=== PATIENT | male | born 1960 | race Two or more races ===

== ENCOUNTER 2020-12-21 11:44 | Emergency (ER) | payer MEDICARE ==
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
--- NOTE | 2020-12-21 13:18 | CR ---
Elbow Min 3V Lt CLINICAL HISTORY: Status post I and D FINDINGS: There is soft tissue swelling over the olecranon. There is an ill-defined ossific or calcific density just anterior to the calf patella. This may be intra-articular foreign body No acute fracture or dislocation is noted. Impression: Soft tissue swelling. This may represent olecranon bursitis Foreign body seen in the antecubital region anterior to the capitellum. This may be intra-articular
== END 2020-12-21 14:05 | disposition home or self-care (01) ==
LOC: JP.ED 11:44
DX: M70.32 Other bursitis of elbow, left elbow (principal); S50.352A Superficial foreign body of left elbow, initial encounter; Z86.73 Personal history of transient ischemic attack (TIA), and cerebral infarction without residual deficits; Z72.0 Tobacco use; W45.8XXA Other foreign body or object entering through skin, initial encounter
CPT/HCPCS: 73080-26-LT; 73080-LT; 99283-25

== ENCOUNTER 2021-01-30 21:01 | Emergency (ER) | payer MEDICARE ==
[2021-01-30] MEDS ORDERED: Aspirin 81 MG Tab.Chew PO ONE (21:46)
[2021-01-30] MEDS: Nitroglycerin 0.4 MG Tab.SL SL PRN ×2 (21:54→22:03)
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
[2021-01-30] MEDS ORDERED: Heparin Sodium 5,000 Units/ML Vial IVPUSH ONE (22:11)
[2021-01-30] MEDS ORDERED: Heparin Sodium/D5W 25,000 UNITS/500 ML BAG IV SCH (22:15)
[2021-01-30] MEDS ORDERED: Nitroglycerin/D5W 25 MG/250 ML BOTTLE IV SCH (22:45)
[2021-01-31] MEDS ORDERED: Iopamidol 755 Mg/ML 100 ML Bottle IV STA (00:22)
[2021-01-31] MEDS ORDERED: Sodium Chloride 0.9% 100 ML IV STA (00:22)
--- NOTE | 2021-01-31 01:49 | CRLCT ---
For Patients: As a result of the Century Cures Act, medical imaging exams and procedure reports are released immediately into your electronic medical record. You may view this report before your referring provider. If you have questions, please contact your health care provider. INDICATION: Chest pain. Rule out pulmonary embolism. TECHNIQUE: Volumetric helical scanning of the thorax was performed during infusion of 100 cc of Isovue 370 contrast material IV, timing optimized for pulmonary arterial opacification. Coronal and sagittal reconstructions were obtained. COMPARISON: None. FINDINGS: The images are of acceptable quality and demonstrate uniform vascular enhancement within the pulmonary arteries. No pulmonary arterial filling defect is identified. The heart is mild to moderately enlarged. Calcified coronary arterial plaque is demonstrated. The lungs are low in volume with crowded markings/ground-glass opacity. Mild bronchial wall thickening is noted. No pleural effusion is evident. There is no mediastinal or hilar lymphadenopathy. Images of the upper abdomen demonstrate a cirrhotic liver. Renal parenchymal scarring is demonstrated bilaterally along with a 5 mm stone in the left renal collecting system. IMPRESSION: 1. Negative for pulmonary embolism. 2. Shallow inspiration with crowded markings/ground-glass opacity and mild bronchial wall thickening. 3. Mild to moderate cardiomegaly and coronary artery disease. 4. Cirrhosis. 5. Renal parenchymal thinning bilaterally and 5 mm left renal collecting system stone. Please note that all CT scans at this facility use dose modulation, iterative reconstruction, and/or weight-based dosing when appropriate to reduce radiation dose to as low as reasonably achievable. Dictated by Acosta Roth MD @ 01/31/2021 1:47:52 AM (Electronically Signed)
[2021-01-31] MEDS ORDERED: LORazepam 2 MG/ML SDV IVPUSH ONE (02:42)
== END 2021-01-31 03:30 ==
LOC: JP.ED 21:01
DX: I21.4 Non-ST elevation (NSTEMI) myocardial infarction (principal); I11.0 Hypertensive heart disease with heart failure; I50.9 Heart failure, unspecified; Z86.73 Personal history of transient ischemic attack (TIA), and cerebral infarction without residual deficits; Z72.0 Tobacco use; Z20.822 Contact with and (suspected) exposure to COVID-19
CPT/HCPCS: 36415; 71275; 80053; 81001; 83880; 84484; 85025; 85379; 86140; 93005; 96365; 96366; 96368; 96375; 99285; A9270; J1644; J2060; J3490; Q9967; U0002

== ENCOUNTER 2021-05-04 16:57 | Emergency (ER) | payer MEDICARE ==
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
== END 2021-05-04 19:01 | disposition home or self-care (01) ==
LOC: JP.ED 16:57
DX: T83.091A Other mechanical complication of indwelling urethral catheter, initial encounter (principal); Z86.73 Personal history of transient ischemic attack (TIA), and cerebral infarction without residual deficits
CPT/HCPCS: 99283

== ENCOUNTER 2021-05-05 03:22 | Emergency (ER) | payer MEDICARE ==
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
[2021-05-05] MEDS ORDERED: Nitrofurantoin Monohydrate/Macrocrystalline 100 MG Cap PO ONE (05:26)
== END 2021-05-05 06:47 | disposition home or self-care (01) ==
LOC: JP.ED 03:22
DX: T83.511A Infection and inflammatory reaction due to indwelling urethral catheter, initial encounter (principal); Z79.899 Other long term (current) drug therapy; Z87.891 Personal history of nicotine dependence
CPT/HCPCS: 36415; 51702; 80048; 81001; 85025; 87086; 87088; 87186; 99283; A9270

== ENCOUNTER 2021-05-11 17:11 | Emergency (ER) | payer MEDICARE ==
[2021-05-11] MEDS ORDERED: Sodium Chloride 0.9% 10 ML Syringe FLUSH PRN (18:16)
[2021-05-11] MEDS ORDERED: Morphine 2 MG/ML SYRINGE IVPUSH PRN (18:16)
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
[2021-05-11] MEDS ORDERED: Carvedilol 3.125 MG Tab PO ONE (21:59)
[2021-05-11] MEDS ORDERED: Furosemide 20 MG Tab PO ONE (21:59)
== END 2021-05-11 22:48 | disposition home or self-care (01) ==
LOC: JP.ED 17:11
DX: R07.89 Other chest pain (principal); T83.9XXA Unspecified complication of genitourinary prosthetic device, implant and graft, initial encounter; I11.0 Hypertensive heart disease with heart failure; I50.9 Heart failure, unspecified; R33.9 Retention of urine, unspecified; Z79.899 Other long term (current) drug therapy; Z72.0 Tobacco use
CPT/HCPCS: 36415; 80048; 81001; 83880; 84484; 85025; 93005; 93010; 96374; 99284; 99285; A9270; J2270

== ENCOUNTER 2021-05-17 03:36 | Emergency (ER) | payer MEDICARE | END 2021-05-17 08:07 | disposition home or self-care (01) | LOC: JP.ED 03:36 | DX: I25.10 Atherosclerotic heart disease of native coronary artery without angina pectoris (principal); I11.0 Hypertensive heart disease with heart failure; I50.9 Heart failure, unspecified; Z72.0 Tobacco use; Z79.899 Other long term (current) drug therapy | CPT/HCPCS: 36415; 71045; 71045-26; 80053; 84484; 85025; 85379; 85610; 85730; 93005; 93010; 99284; 99285-25 ==

== ENCOUNTER 2021-05-25 01:12 | Emergency (ER) | payer MEDICARE ==
[2021-05-25] MEDS: Aluminum Hydroxide/Magnesium Hydroxide/Simethicone Susp 30 ML Cup PO STA (01:57)
[2021-05-25] MEDS: Pantoprazole 40 MG Tab.CR PO STA (06:55)
== END 2021-05-25 08:05 | disposition home or self-care (01) ==
LOC: JP.ED 01:12
DX: K21.00 Gastro-esophageal reflux disease with esophagitis, without bleeding (principal); Z79.899 Other long term (current) drug therapy; Z86.73 Personal history of transient ischemic attack (TIA), and cerebral infarction without residual deficits
CPT/HCPCS: 36415; 80053; 84484; 85025; 85379; 86140; 93005; 93010; 99284; 99285-25; A9270-GY

== ENCOUNTER 2021-07-10 03:49 | Emergency (ER) | payer MEDICARE | END 2021-07-10 06:40 | disposition home or self-care (01) | LOC: JP.ED 03:49 | DX: Z53.21 Procedure and treatment not carried out due to patient leaving prior to being seen by health care provider (principal) ==

== ENCOUNTER 2021-08-09 01:17 | Emergency (ER) | payer MEDICARE | END 2021-08-09 08:25 | disposition home or self-care (01) | LOC: JP.ED 01:17 | DX: Z46.6 Encounter for fitting and adjustment of urinary device (principal); Z79.899 Other long term (current) drug therapy; Z86.73 Personal history of transient ischemic attack (TIA), and cerebral infarction without residual deficits | CPT/HCPCS: 51702; 99281; 99283-25 ==

== ENCOUNTER 2021-08-19 16:25 | Emergency (ER) | payer MEDICARE ==
[2021-08-19] MEDS ORDERED: cefTRIAXone 2 GM in Sodium Chloride 0.9% 50 ML IV ONE (17:37)
[2021-08-19] MEDS ORDERED: Sodium Chloride 0.9% 1,000 ML IV SCH (17:45)
== END 2021-08-19 20:02 | disposition home or self-care (01) ==
LOC: JP.ED 16:25
DX: T83.098A Other mechanical complication of other urinary catheter, initial encounter (principal); T83.511A Infection and inflammatory reaction due to indwelling urethral catheter, initial encounter; N39.0 Urinary tract infection, site not specified; E86.0 Dehydration; Z86.73 Personal history of transient ischemic attack (TIA), and cerebral infarction without residual deficits; Z79.899 Other long term (current) drug therapy; Z72.0 Tobacco use
CPT/HCPCS: 36415; 51702; 51798; 80053; 81001; 85025; 87086; 87088; 87186; 96365; 99282; 99283-25; J0696; J7030

== ENCOUNTER 2021-09-18 07:50 | Emergency (ER) | payer MEDICARE ==
[2021-09-18] MEDS ORDERED: Lisinopril 10 MG Tab PO ONE (09:05)
[2021-09-18] MEDS ORDERED: Carvedilol 3.125 MG Tab PO ONE (09:06)
== END 2021-09-18 10:20 | disposition home or self-care (01) ==
LOC: JP.ED 07:50
DX: T83.098A Other mechanical complication of other urinary catheter, initial encounter (principal); Z79.899 Other long term (current) drug therapy; Z86.73 Personal history of transient ischemic attack (TIA), and cerebral infarction without residual deficits
CPT/HCPCS: 51702; 99281; 99283-25; A9270-GY

== ENCOUNTER 2021-12-06 21:37 | Emergency (ER) | payer MEDICARE ==
[2021-12-06] MEDS ORDERED: Sodium Chloride 0.9% 10 ML Syringe FLUSH PRN ×2 (21:41→21:46)
[2021-12-06] MEDS ORDERED: Nitroglycerin 0.4 MG Tab.SL SL PRN (21:46)
[2021-12-06] MEDS ORDERED: Ondansetron 4 MG/2 ML SDV IVPUSH ONE (21:46)
[2021-12-06 22:12] LABS: ESTIMATED GFR 63 mL/min (>60); TROPONIN I HIGH SENSITIVITY 20.6 pg/mL (<=60.3)
[2021-12-06] MEDS ORDERED: Sodium Chloride 0.9% 75 ML IV SCH (23:00)
[2021-12-06] MEDS ORDERED: Iopamidol 755 Mg/ML 100 ML Bottle IV SCH (23:00)
== END 2021-12-07 00:55 | disposition home or self-care (01) ==
LOC: JP.ED 21:37
DX: J20.9 Acute bronchitis, unspecified (principal); R06.02 Shortness of breath; Z79.899 Other long term (current) drug therapy; Z79.82 Long term (current) use of aspirin; Z20.822 Contact with and (suspected) exposure to COVID-19
CPT/HCPCS: 36415; 71045; 71275; 80053; 83735; 84484; 85025; 85379; 85610; 85730; 93005; 96374; 99285; A9270; J2405; J3490; Q9967; U0002

== ENCOUNTER 2021-12-08 16:56 | Emergency (ER) | payer MEDICARE | END 2021-12-08 19:17 | disposition home or self-care (01) | LOC: JP.ED 16:56 → EEVIPCON 16:56 → JP.ED 19:17 | DX: T83.021A Displacement of indwelling urethral catheter, initial encounter (principal); E11.9 Type 2 diabetes mellitus without complications; I25.2 Old myocardial infarction; F17.210 Nicotine dependence, cigarettes, uncomplicated; Z95.0 Presence of cardiac pacemaker; Z79.899 Other long term (current) drug therapy; Z79.82 Long term (current) use of aspirin | CPT/HCPCS: 99283 ==

== ENCOUNTER 2021-12-21 23:37 | Emergency (ER) | payer MEDICARE ==
[2021-12-21] MEDS ORDERED: Morphine 4 MG/ML Syringe IVPUSH PRN (23:58)
[2021-12-21] MEDS ORDERED: Sodium Chloride 0.9% 10 ML Syringe FLUSH PRN (23:58)
[2021-12-21] MEDS ORDERED: Nitroglycerin 0.4 MG Tab.SL SL PRN (23:58)
[2021-12-22] MEDS ORDERED: Alum Hydrox/Mag Hydrox/Simeth 15 ML, Lidocaine 2% 15 ML PO ONE ×2 (00:28)
[2021-12-22] MEDS ORDERED: Ondansetron 4 MG/2 ML SDV IVPUSH ONE (00:34)
[2021-12-22 00:39] LABS: ESTIMATED GFR 57 mL/min (>60); TROPONIN I HIGH SENSITIVITY 14.3 pg/mL (<=60.3)
== END 2021-12-22 04:15 | disposition home or self-care (01) ==
LOC: JP.ED 23:37
DX: R07.89 Other chest pain (principal); I25.10 Atherosclerotic heart disease of native coronary artery without angina pectoris; I25.2 Old myocardial infarction; E11.9 Type 2 diabetes mellitus without complications; Z79.899 Other long term (current) drug therapy; Z79.82 Long term (current) use of aspirin; Z86.73 Personal history of transient ischemic attack (TIA), and cerebral infarction without residual deficits
CPT/HCPCS: 36415; 71045; 80053; 80307; 83605; 83690; 84484; 85025; 93005; 96374; 96375; 99285; A9270; J2270; J2405; J3490

== ENCOUNTER 2022-01-14 21:35 | Emergency (ER) | payer MEDICARE ==
[2022-01-14] MEDS ORDERED: Morphine 2 MG/ML SYRINGE IVPUSH ONE (22:01)
[2022-01-14] MEDS ORDERED: Sodium Chloride 0.9% 10 ML Syringe FLUSH PRN (22:27)
[2022-01-14 22:58] LABS: ESTIMATED GFR 63 mL/min (>60); TROPONIN I HIGH SENSITIVITY 17.1 pg/mL (<=60.3)
[2022-01-14] MEDS ORDERED: cefTRIAXone 1 GM in Sodium Chloride 0.9% 50 ML IV ONE (23:28)
[2022-01-14] MEDS ORDERED: Magnesium Sulfate/Water 2 GM in Premix Bag 1 BAG IV ONE (23:29)
[2022-01-14] MEDS ORDERED: Calcium Carbonate 500 MG Tab.Chew PO ONE (23:29)
== END 2022-01-15 02:05 | disposition home or self-care (01) ==
LOC: JP.ED 21:35
DX: T83.091A Other mechanical complication of indwelling urethral catheter, initial encounter (principal); E83.51 Hypocalcemia; E83.42 Hypomagnesemia; N39.0 Urinary tract infection, site not specified; R20.2 Paresthesia of skin; F19.10 Other psychoactive substance abuse, uncomplicated; I25.10 Atherosclerotic heart disease of native coronary artery without angina pectoris; I50.9 Heart failure, unspecified; I25.2 Old myocardial infarction; Z79.899 Other long term (current) drug therapy; Z95.810 Presence of automatic (implantable) cardiac defibrillator
CPT/HCPCS: 36415; 80053; 80305; 80307; 81001; 82607; 82746; 83690; 83735; 83880; 84443; 84484; 85025; 87086; 87088; 87186; 93005; 96365; 96366; 96367; 96375; 99284; A9270; J0696; J2270; J3475; J3490

== ENCOUNTER 2022-03-18 13:39 | Emergency (ER) | payer MEDICARE ==
[2022-03-18 16:24] LABS: ESTIMATED GFR 49 mL/min (>60)
== END 2022-03-18 22:26 | disposition home or self-care (01) ==
LOC: JP.ED 13:39
DX: T83.091A Other mechanical complication of indwelling urethral catheter, initial encounter (principal); N30.01 Acute cystitis with hematuria; I25.10 Atherosclerotic heart disease of native coronary artery without angina pectoris; E11.9 Type 2 diabetes mellitus without complications; Z79.899 Other long term (current) drug therapy
CPT/HCPCS: 36415; 51702; 74176; 80053; 81001; 85025; 86140; 87086; 87088; 87186; 99284-25

== ENCOUNTER 2022-03-22 23:57 | Emergency (ER) | payer MEDICARE ==
[2022-03-23] MEDS ORDERED: Ondansetron 4 MG/2 ML SDV IVPUSH ONE (00:22)
[2022-03-23] MEDS ORDERED: fentaNYL 100 MCG/2 ML SDV IVPUSH ONE (00:22)
[2022-03-23] MEDS ORDERED: Lactated Ringers 1,000 ML IV SCH (00:30)
[2022-03-23] MEDS ORDERED: Levofloxacin/Dextrose 5%-Water 750 MG in Premix Bag 1 BAG IV SCH (00:30)
[2022-03-23] MEDS ORDERED: Iopamidol 612 MG/ML 100 ML Bottle IV PRN (00:52)
[2022-03-23] MEDS ORDERED: Sodium Chloride 0.9% 50 ML IV ONE (00:52)
[2022-03-23 00:57] LABS: ESTIMATED GFR 45 mL/min (>60)
[2022-03-23] MEDS: Sodium Chloride 0.9% 10 ML Syringe FLUSH PRN ×2 (00:57→01:11)
== END 2022-03-23 02:20 | disposition home or self-care (01) ==
LOC: JP.ED 23:57
DX: N30.90 Cystitis, unspecified without hematuria (principal); I25.119 Atherosclerotic heart disease of native coronary artery with unspecified angina pectoris; I25.2 Old myocardial infarction; E11.9 Type 2 diabetes mellitus without complications; F17.210 Nicotine dependence, cigarettes, uncomplicated; Z95.0 Presence of cardiac pacemaker; Z79.899 Other long term (current) drug therapy; Z79.02 Long term (current) use of antithrombotics/antiplatelets
CPT/HCPCS: 36415; 74177; 80053; 81001; 83605; 84145; 84484; 85025; 86140; 87040; 87086; 87088; 87186; 96365; 96375; 99284; J1956; J2405; J3010; J3490; J7120; Q9967

== ENCOUNTER 2022-03-31 18:34 | Emergency (ER) | payer MEDICARE ==
[2022-03-31 19:17] LABS: ESTIMATED GFR 42 mL/min (>60)
[2022-03-31] MEDS ORDERED: Lidocaine 5% 700 MG Patch TRDERM ONE (19:59)
== END 2022-03-31 20:27 | disposition home or self-care (01) ==
LOC: JP.ED 18:34
DX: S20.222A Contusion of left back wall of thorax, initial encounter (principal); K59.01 Slow transit constipation; I25.119 Atherosclerotic heart disease of native coronary artery with unspecified angina pectoris; I25.2 Old myocardial infarction; E11.9 Type 2 diabetes mellitus without complications; F17.210 Nicotine dependence, cigarettes, uncomplicated; Z79.02 Long term (current) use of antithrombotics/antiplatelets; Z79.899 Other long term (current) drug therapy; Z86.73 Personal history of transient ischemic attack (TIA), and cerebral infarction without residual deficits; Z95.810 Presence of automatic (implantable) cardiac defibrillator; W18.09XA Striking against other object with subsequent fall, initial encounter
CPT/HCPCS: 36415; 71101; 74176; 80053; 81001; 85025; 86140; 99284; A9270

== ENCOUNTER 2022-05-05 18:16 | Emergency (ER) | payer MEDICARE, MEDICAID ==
[2022-05-05 19:26] LABS: ESTIMATED GFR 49 mL/min (>60)
[2022-05-05 19:41] LABS: CORONAVIRUS COVID-19 NAA NEGATIVE (NEGATIVE)
[2022-05-05] MEDS ORDERED: Ciprofloxacin 500 MG Tab PO ONE (20:12)
== END 2022-05-05 21:07 | disposition home or self-care (01) ==
LOC: JP.ED 18:16
DX: N39.0 Urinary tract infection, site not specified (principal); I25.10 Atherosclerotic heart disease of native coronary artery without angina pectoris; I50.9 Heart failure, unspecified; I25.2 Old myocardial infarction; E11.9 Type 2 diabetes mellitus without complications; Z79.02 Long term (current) use of antithrombotics/antiplatelets; Z79.899 Other long term (current) drug therapy; Z20.822 Contact with and (suspected) exposure to COVID-19
CPT/HCPCS: 0241U; 36415; 74176; 80053; 81001; 85025; 86140; 87086; 87088; 87186; 99284; A9270

== ENCOUNTER 2022-05-06 23:36 | Emergency (ER) | payer MEDICARE, MEDICAID ==
[2022-05-06] MEDS ORDERED: Ondansetron 4 MG/2 ML SDV IVPUSH ONE (23:50)
[2022-05-06] MEDS ORDERED: Sodium Chloride 0.9% 10 ML Syringe FLUSH PRN (23:50)
[2022-05-07 00:09] LABS: ESTIMATED GFR 53 mL/min (>60)
[2022-05-07] MEDS ORDERED: Haloperidol Lactate 5 MG/ML SDV IVPUSH ONE (00:42)
[2022-05-07] MEDS ORDERED: cefTRIAXone 2 GM in Sodium Chloride 0.9% 50 ML IV ONE (01:16)
== END 2022-05-07 02:33 | disposition home or self-care (01) ==
LOC: JP.ED 23:36
DX: R55 Syncope and collapse (principal); N30.01 Acute cystitis with hematuria; I10 Essential (primary) hypertension; F15.90 Other stimulant use, unspecified, uncomplicated; I25.119 Atherosclerotic heart disease of native coronary artery with unspecified angina pectoris; I25.2 Old myocardial infarction; E11.9 Type 2 diabetes mellitus without complications; Z86.73 Personal history of transient ischemic attack (TIA), and cerebral infarction without residual deficits; Z95.0 Presence of cardiac pacemaker; Z79.899 Other long term (current) drug therapy
CPT/HCPCS: 36415; 80053; 83605; 84484; 85025; 86140; 93005; 96365; 96375; 99284; J0696; J1630; J2405; J3490

== ENCOUNTER 2022-05-20 02:46 | Emergency (ER) | payer MEDICARE, MEDICAID | END 2022-05-20 03:31 | disposition home or self-care (01) | LOC: JP.ED 02:46 | DX: T83.011A Breakdown (mechanical) of indwelling urethral catheter, initial encounter (principal); I25.119 Atherosclerotic heart disease of native coronary artery with unspecified angina pectoris; I25.2 Old myocardial infarction; E11.9 Type 2 diabetes mellitus without complications; F17.210 Nicotine dependence, cigarettes, uncomplicated; Z95.0 Presence of cardiac pacemaker; Z79.899 Other long term (current) drug therapy; Z79.02 Long term (current) use of antithrombotics/antiplatelets; Z79.82 Long term (current) use of aspirin | CPT/HCPCS: 51702; 99283 ==

== ENCOUNTER 2022-06-30 13:06 | Emergency (ER) | payer MEDICARE, MEDICAID ==
[2022-06-30] MEDS ORDERED: Sodium Chloride 0.9% 10 ML Syringe FLUSH PRN (13:12)
[2022-06-30 14:13] LABS: ESTIMATED GFR 57 mL/min (>60); TROPONIN I HIGH SENSITIVITY 14.2 pg/mL (<=60.3)
[2022-06-30 14:40] LABS: CORONAVIRUS COVID-19 NAA NEGATIVE (NEGATIVE)
== END 2022-06-30 16:08 | disposition home or self-care (01) ==
LOC: JP.ED 13:06
DX: R07.89 Other chest pain (principal); R06.00 Dyspnea, unspecified; R09.02 Hypoxemia; N39.0 Urinary tract infection, site not specified; I13.0 Hypertensive heart and chronic kidney disease with heart failure and stage 1 through stage 4 chronic kidney disease, or unspecified chronic kidney disease; N18.32 Chronic kidney disease, stage 3b; I50.9 Heart failure, unspecified; E11.22 Type 2 diabetes mellitus with diabetic chronic kidney disease; I25.10 Atherosclerotic heart disease of native coronary artery without angina pectoris; I25.2 Old myocardial infarction; Z95.810 Presence of automatic (implantable) cardiac defibrillator; Z96.0 Presence of urogenital implants; Z20.822 Contact with and (suspected) exposure to COVID-19; Z86.73 Personal history of transient ischemic attack (TIA), and cerebral infarction without residual deficits; Z79.899 Other long term (current) drug therapy; Z99.81 Dependence on supplemental oxygen
CPT/HCPCS: 0241U; 36415; 71045; 80053; 81001; 83880; 84145; 84484; 85025; 85610; 85730; 87086; 87088; 87186; 93005; 99285

== ENCOUNTER 2022-07-01 02:34 | Emergency (ER) | payer MEDICARE, MEDICAID ==
[2022-07-01] MEDS ORDERED: Sodium Chloride 0.9% 10 ML Syringe FLUSH PRN (02:48)
== END 2022-07-01 04:29 | disposition home or self-care (01) ==
LOC: JP.ED 02:34
DX: R07.89 Other chest pain (principal); I25.2 Old myocardial infarction; E11.9 Type 2 diabetes mellitus without complications; Z95.0 Presence of cardiac pacemaker; Z79.899 Other long term (current) drug therapy; Z86.73 Personal history of transient ischemic attack (TIA), and cerebral infarction without residual deficits; Z79.82 Long term (current) use of aspirin
CPT/HCPCS: 36415; 84484; 93005; 99285

== ENCOUNTER 2022-08-24 18:13 | Emergency (ER) | payer MEDICARE, MEDICAID ==
[2022-08-24] MEDS ORDERED: Ondansetron 4 MG/2 ML SDV IVPUSH ONE (19:22)
[2022-08-24] MEDS ORDERED: Lactated Ringers 1,000 ML IV SCH (19:30)
[2022-08-24 19:39] LABS: CORONAVIRUS COVID-19 NAA NEGATIVE (NEGATIVE)
[2022-08-24 20:01] LABS: ESTIMATED GFR 39 mL/min (>60)
[2022-08-24] MEDS ORDERED: cefTRIAXone 1 GM in Sodium Chloride 0.9% 50 ML IV ONE (20:59)
== END 2022-08-24 22:30 | disposition home or self-care (01) ==
LOC: JP.ED 18:13
DX: N39.0 Urinary tract infection, site not specified (principal); I25.10 Atherosclerotic heart disease of native coronary artery without angina pectoris; I50.9 Heart failure, unspecified; I25.2 Old myocardial infarction; E11.9 Type 2 diabetes mellitus without complications; F17.210 Nicotine dependence, cigarettes, uncomplicated; Z20.822 Contact with and (suspected) exposure to COVID-19; Z79.82 Long term (current) use of aspirin; Z79.899 Other long term (current) drug therapy
CPT/HCPCS: 0241U; 36415; 51702; 71046; 80053; 81001; 83605; 83880; 84145; 84484; 85025; 86140; 87040; 87086; 87088; 87186; 96361; 96365; 96375; 99285; J0696; J2405; J3490; J7120

== ENCOUNTER 2022-10-18 06:59 | Emergency (ER) | payer MEDICARE, MEDICAID ==
[2022-10-18] MEDS ORDERED: HYDROmorphone 0.5 MG/0.5 ML Syringe IVPUSH ONE ×2 (07:05→10:37)
[2022-10-18] MEDS ORDERED: Ondansetron 4 MG/2 ML SDV IVPUSH ONE (07:05)
[2022-10-18] MEDS ORDERED: Naloxone 0.4 MG/ML SDV IVPUSH PRN (07:06)
[2022-10-18] MEDS ORDERED: Sodium Chloride 0.9% 10 ML Syringe FLUSH PRN (07:06)
[2022-10-18] MEDS ORDERED: Pantoprazole 40 MG Vial IVPUSH ONE (07:06)
[2022-10-18 07:22] LABS: BASOPHILS ABSOLUTE AUTO 0.05 K/uL (0.00-0.10); BASOPHILS PERCENT AUTO 0.6 % (0.1-1.3); EOSINOPHILS ABSOLUTE AUTO 0.19 K/uL (0.00-0.40); EOSINOPHILS PERCENT AUTO 2.4 % (0.0-5.4); HEMATOCRIT 43.6 % (38.4-49.7); HEMOGLOBIN 15.2 g/dL (12.9-16.9); IMMATURE GRAN ABSOLUTE AUTO 0.07 K/uL (0.00-0.23); IMMATURE GRAN PERCENT AUTO 0.9 % (0.0-0.7); LYMPHOCYTES ABSOLUTE AUTO 1.86 K/uL (0.8-3.3); LYMPHOCYTES PERCENT AUTO 23.2 % (11.4-47.7); MEAN CORPUSCULAR HEMOGLOBIN 29.7 pg (31.6-35.5); MEAN CORPUSCULAR HGB CONC 34.9 g/dL (31.6-35.5); MEAN CORPUSCULAR VOLUME 85.2 fL (81.4-99.0); MONOCYTES ABSOLUTE AUTO 0.56 K/uL (0.20-0.90); NEUTROPHILS ABSOLUTE AUTO 5.28 K/uL (1.0-7.6); NEUTROPHILS PERCENT AUTO 65.9 % (40.0-78.1); PLATELET COUNT,PLT 170 K/uL (130-375); RED BLOOD CELL COUNT 5.12 M/uL (4.14-5.76)
[2022-10-18 07:44] LABS: A/G RATIO 0.8 (1.2-2.2); ALANINE AMINOTRANSFERASE,ALT 45 U/L (12-78); ALBUMIN 3.1 g/dL (3.4-5.0); ALKALINE PHOSPHATASE 140 U/L (46-116); ANION GAP 14.8 mmol/L (5.0-14.0); ASPARTATE AMNIOTRANSFERASE,AST 30 U/L (15-37); BILIRUBIN TOTAL 0.7 mg/dL (0.2-1.0); BLOOD UREA NITROGEN,BUN 20 mg/dL (7-18); C-REACTIVE PROTEIN 3.34 mg/dL (0.0-0.3); CALCIUM 8.8 mg/dL (8.5-10.1); CARBON DIOXIDE,CO2 26 mmol/L (21-32); CHLORIDE,CL 98 mmol/L (100-108); CREATININE 1.4 mg/dL (0.8-1.3); EST CRCL DRUG DOSING (CG) 54.71 mL/min; ESTIMATED GFR 57 mL/min (>60); GLUCOSE RANDOM 240 mg/dL (74-106); LIPASE 671 U/L (73-393); POTASSIUM,K 3.8 mmol/L (3.6-5.2); PROTEIN TOTAL,TP 7.1 g/dL (6.4-8.2); SODIUM,NA 135 mmol/L (140-148)
[2022-10-18] MEDS ORDERED: Iopamidol 612 MG/ML 100 ML Bottle IV ONE (07:56)
[2022-10-18] MEDS ORDERED: Sodium Chloride 0.9% 50 ML IV SCH (08:00)
[2022-10-18 08:51] LABS: APPEARANCE,URINE CLEAR (CLEAR); BILIRUBIN,URINE NEGATIVE (NEGATIVE); COLOR,URINE YELLOW (YELLOW); GLUCOSE,URINE NEGATIVE (NEGATIVE); KETONES,URINE NEGATIVE (NEGATIVE); LEUKOCYTE ESTERASE,URINE SMALL (NEGATIVE); NITRITE,URINE NEGATIVE (NEGATIVE); OCCULT BLOOD,URINE SMALL (NEGATIVE); PROTEIN,URINE NEGATIVE (NEGATIVE); UROBILINOGEN,URINE 0.2 EU/dL (0.2-1.0)
[2022-10-18 09:00] LABS: AMORPHOUS SEDIMENT,URINE MANY; BACTERIA,URINE RARE; EPITHELIAL CELLS,URINE NOT SEEN; MUCUS,URINE NOT SEEN
[2022-10-18 09:01] LABS: AMPHETAMINES SCREEN, URINE PRESUMPTIVE POSITIVE (NEGATIVE); BARBITURATE SCREEN,URINE NEGATIVE (NEGATIVE); BENZODIAZEPINES SCREEN,URINE NEGATIVE (NEGATIVE); METHADONE SCREEN, URINE NEGATIVE (NEGATIVE); METHAMPHETAMINES SCREEN, URINE PRESUMPTIVE POSITIVE (NEGATIVE); OXYCODONE SCREEN,URINE NEGATIVE (NEGATIVE); PROPOXYPHENE SCREEN,URINE NEGATIVE (NEGATIVE); THC SCREEN,URINE 50 NG/ML NEGATIVE (NEGATIVE)
[2022-10-18] MEDS ORDERED: Sodium Chloride 0.9% 1,000 ML IV SCH (09:15)
[2022-10-18 11:00] LABS: PROTHROMBIN TIME 10.6 sec (9.2-10.6); PTT,PARTIAL THROMBOPLSTIN TIME 27.2 sec (21.8-27.3)
== END 2022-10-18 12:09 ==
LOC: JP.ED 06:59
DX: K85.10 Biliary acute pancreatitis without necrosis or infection (principal); F19.10 Other psychoactive substance abuse, uncomplicated; F15.90 Other stimulant use, unspecified, uncomplicated; I12.9 Hypertensive chronic kidney disease with stage 1 through stage 4 chronic kidney disease, or unspecified chronic kidney disease; E11.22 Type 2 diabetes mellitus with diabetic chronic kidney disease; N18.32 Chronic kidney disease, stage 3b; I50.9 Heart failure, unspecified; I25.119 Atherosclerotic heart disease of native coronary artery with unspecified angina pectoris; I25.2 Old myocardial infarction; Z79.899 Other long term (current) drug therapy; Z79.82 Long term (current) use of aspirin; Z79.02 Long term (current) use of antithrombotics/antiplatelets
CPT/HCPCS: 36415; 51702; 74177; 76705; 80053; 80305; 81001; 82140; 82800; 83605; 83690; 85025; 85610; 85730; 86140; 87086; 87088; 87186; 93005; 96361; 96374; 96375; 96376; 99285; C9113; J1170; J2405; J3490; J7030; Q9967

== ENCOUNTER 2022-12-12 10:43 | Emergency (ER) | payer MEDICARE, MEDICAID ==
[2022-12-12] MEDS ORDERED: Sodium Chloride 0.9% 10 ML Syringe FLUSH PRN (10:45)
[2022-12-12] MEDS ORDERED: Sodium Chloride 0.9% 500 ML IV ONE (10:53)
[2022-12-12 10:54] LABS: BASOPHILS ABSOLUTE AUTO 0.06 K/uL (0.00-0.10); BASOPHILS PERCENT AUTO 0.9 % (0.1-1.3); EOSINOPHILS PERCENT AUTO 4.4 % (0.0-5.4); HEMATOCRIT 42.2 % (38.4-49.7); HEMOGLOBIN 14.3 g/dL (12.9-16.9); IMMATURE GRAN ABSOLUTE AUTO 0.04 K/uL (0.00-0.23); IMMATURE GRAN PERCENT AUTO 0.6 % (0.0-0.7); LYMPHOCYTES PERCENT AUTO 27.6 % (11.4-47.7); MEAN CORPUSCULAR HEMOGLOBIN 28.9 pg (31.6-35.5); MEAN CORPUSCULAR HGB CONC 33.9 g/dL (31.6-35.5); MEAN CORPUSCULAR VOLUME 85.3 fL (81.4-99.0); MONOCYTES ABSOLUTE AUTO 0.55 K/uL (0.20-0.90); NEUTROPHILS ABSOLUTE AUTO 4.04 K/uL (1.0-7.6); NEUTROPHILS PERCENT AUTO 58.5 % (40.0-78.1); PLATELET COUNT,PLT 176 K/uL (130-375); RED BLOOD CELL COUNT 4.95 M/uL (4.14-5.76); WHITE BLOOD CELL COUNT,WBC 6.9 K/uL (3.2-11.0)
[2022-12-12 11:24] LABS: BLOOD UREA NITROGEN,BUN 34 mg/dL (7-18); CALCIUM 8.7 mg/dL (8.5-10.1); CARBON DIOXIDE,CO2 23 mmol/L (21-32); CHLORIDE,CL 101 mmol/L (100-108); CREATININE 1.7 mg/dL (0.8-1.3); ESTIMATED GFR 45 mL/min (>60); GLUCOSE RANDOM 228 mg/dL (74-106); SODIUM,NA 135 mmol/L (140-148)
[2022-12-12 11:25] LABS: TROPONIN I HIGH SENSITIVITY 9.2 pg/mL (<=60.3)
[2022-12-12 11:45] LABS: TSH ULTRASENSITIVE 0.709 uIU/mL (0.358-3.740)
[2022-12-12 11:46] LABS: FOLIC ACID > 20.0 ng/ml (8.6-58.9)
[2022-12-12 12:07] LABS: AMPHETAMINES SCREEN, URINE PRESUMPTIVE POSITIVE (NEGATIVE); BARBITURATE SCREEN,URINE NEGATIVE (NEGATIVE); BENZODIAZEPINES SCREEN,URINE NEGATIVE (NEGATIVE); METHAMPHETAMINES SCREEN, URINE PRESUMPTIVE POSITIVE (NEGATIVE)
[2022-12-12 12:08] LABS: METHADONE SCREEN, URINE NEGATIVE (NEGATIVE); OXYCODONE SCREEN,URINE NEGATIVE (NEGATIVE); PROPOXYPHENE SCREEN,URINE NEGATIVE (NEGATIVE); THC SCREEN,URINE 50 NG/ML PRESUMPTIVE POSITIVE (NEGATIVE)
== END 2022-12-12 16:00 | disposition home or self-care (01) ==
LOC: JP.ED 10:43
DX: E11.22 Type 2 diabetes mellitus with diabetic chronic kidney disease (principal); N18.32 Chronic kidney disease, stage 3b; F15.90 Other stimulant use, unspecified, uncomplicated; I50.22 Chronic systolic (congestive) heart failure; I25.10 Atherosclerotic heart disease of native coronary artery without angina pectoris; I25.2 Old myocardial infarction; Z87.448 Personal history of other diseases of urinary system; Z86.73 Personal history of transient ischemic attack (TIA), and cerebral infarction without residual deficits; Z95.810 Presence of automatic (implantable) cardiac defibrillator; Z79.82 Long term (current) use of aspirin; Z79.899 Other long term (current) drug therapy
CPT/HCPCS: 36415; 71045; 80048; 80305; 80307; 82607; 82746; 82800; 83735; 83880; 84145; 84443; 84484; 85025; 93010; 99285; J7040

== ENCOUNTER 2023-01-20 06:20 | Emergency (ER) | payer MEDICARE, MEDICAID ==
[2023-01-20] MEDS ORDERED: Lidocaine 2% Jelly 10 ML Urojet MUCMEM ONE (07:38)
== END 2023-01-20 09:00 | disposition home or self-care (01) ==
LOC: JP.ED 06:20
DX: T83.011A Breakdown (mechanical) of indwelling urethral catheter, initial encounter (principal); N18.32 Chronic kidney disease, stage 3b; I25.10 Atherosclerotic heart disease of native coronary artery without angina pectoris; I25.2 Old myocardial infarction; I50.9 Heart failure, unspecified; E11.22 Type 2 diabetes mellitus with diabetic chronic kidney disease; F17.210 Nicotine dependence, cigarettes, uncomplicated; Z86.73 Personal history of transient ischemic attack (TIA), and cerebral infarction without residual deficits; Z95.0 Presence of cardiac pacemaker; Z79.02 Long term (current) use of antithrombotics/antiplatelets; Z79.82 Long term (current) use of aspirin; Z79.899 Other long term (current) drug therapy
CPT/HCPCS: 51702; 99284

== ENCOUNTER 2023-02-06 12:34 | Emergency (ER) | payer MEDICARE, MEDICAID ==
[2023-02-06 13:12] LABS: BASOPHILS ABSOLUTE AUTO 0.06 K/uL (0.00-0.10); BASOPHILS PERCENT AUTO 0.9 % (0.1-1.3); EOSINOPHILS ABSOLUTE AUTO 0.15 K/uL (0.00-0.40); EOSINOPHILS PERCENT AUTO 2.1 % (0.0-5.4); HEMATOCRIT 44.6 % (38.4-49.7); HEMOGLOBIN 15.2 g/dL (12.9-16.9); IMMATURE GRAN ABSOLUTE AUTO 0.08 K/uL (0.00-0.23); IMMATURE GRAN PERCENT AUTO 1.1 % (0.0-0.7); LYMPHOCYTES ABSOLUTE AUTO 1.55 K/uL (0.8-3.3); LYMPHOCYTES PERCENT AUTO 22.2 % (11.4-47.7); MEAN CORPUSCULAR HEMOGLOBIN 28.5 pg (31.6-35.5); MEAN CORPUSCULAR HGB CONC 34.1 g/dL (31.6-35.5); MEAN CORPUSCULAR VOLUME 83.7 fL (81.4-99.0); MONOCYTES ABSOLUTE AUTO 0.54 K/uL (0.20-0.90); MONOCYTES PERCENT AUTO 7.7 % (3.3-12.6); NEUTROPHILS ABSOLUTE AUTO 4.61 K/uL (1.0-7.6); PLATELET COUNT,PLT 158 K/uL (130-375); RED BLOOD CELL COUNT 5.33 M/uL (4.14-5.76)
[2023-02-06 13:35] LABS: CALCIUM 7.9 mg/dL (8.5-10.1); CREATININE 1.4 mg/dL (0.8-1.3); EST CRCL DRUG DOSING (CG) 54.71 mL/min; POTASSIUM,K 3.8 mmol/L (3.6-5.2); TROPONIN I HIGH SENSITIVITY 10.6 pg/mL (<=60.3)
[2023-02-06 13:39] LABS: ANION GAP 14.8 mmol/L (5.0-14.0)
== END 2023-02-06 15:34 | disposition home or self-care (01) ==
LOC: JP.ED 12:34
DX: R07.89 Other chest pain (principal); I25.10 Atherosclerotic heart disease of native coronary artery without angina pectoris; I25.2 Old myocardial infarction; F17.210 Nicotine dependence, cigarettes, uncomplicated; E11.9 Type 2 diabetes mellitus without complications; Z79.01 Long term (current) use of anticoagulants; Z79.899 Other long term (current) drug therapy
CPT/HCPCS: 36415; 71046; 71046-26; 80048; 84484; 85025; 93005; 99285